=== PATIENT | male | born 1965 | race Caucasian/White ===

== ENCOUNTER → 2016-11-02 | Outpatient (CLI) | payer OTHER ==
--- NOTE | 2016-11-02 22:26 | CT ---
EXAMINATION TYPE: CT abdomen pelvis w con DATE OF EXAM: 11/02/2016 6:11 PM COMPARISON: NONE INDICATION: Patient complains of periumbilical pain and umbilical hernia. DLP: 1471.6 mGycm, Automated exposure control for dose reduction was used. CONTRAST: 100 mL of Omnipaque 300. Study performed with Oral Contrast TECHNIQUE: Axial images were obtained from above the diaphragm to the pubic rami in the axial plane a t 5 mm thick sections. Reconstructed images are reviewed on the computer in the coronal plane. FINDINGS: Limited CT sections are obtained the lung bases. The lung bases are clear. CT ABDOMEN: There may be a tiny mesenteric hernia with slight increased density in the periumbilical region with an opening of about 0.9 cm. No loops of bowel are involved. Small incarcerated mesenteric fat hernia could be considered at this level. Liver: Normal Spleen: Normal Pancreas: Normal Adrenal glands: The adrenal glands are normal. Gallbladder: Normal Kidneys: No masses are evident. No hydronephrosis is present. No cysts are present. Delayed images were obtained through the kidneys, which remain unremarkable. Aorta: Mild Vascular calcification is within the aorta. Inferior vena cava: Normal. CT PELVIS: Loops of bowel within the abdomen and pelvis are normal. There are loops of bowel which are incom pletely distended or lack oral contrast limiting their evaluation. Note is made of diverticular araiza es within the sigmoid colon. Appendix: Not identified Urinary bladder: Normal. Genitourinary structures: Prostate appears unremarkable. Osseous structures: No suspicious lytic or sclerotic lesions. Sacroiliac joint degenerative changes a re present. Some facet hypertrophy is present. Degenerative disc changes are within the lumbar spine. IMPRESSIONS: 1. Tiny periumbilical mesenteric fat containing hernia may be present. This may contain incarcerated fat. 2. Mild diverticulosis without acute diverticulitis sigmoid colon.
== END | disposition home or self-care (01) ==
LOC: RADCTMAIN 17:32
PROVIDERS: ATTEND Surgery
DX: K57.30 Diverticulosis of large intestine without perforation or abscess without bleeding (principal)
CPT/HCPCS: 74177; Q9967

== ENCOUNTER 2016-11-19 11:05 | Day surgery (SDC) | payer OTHER ==
[2016-11-13 16:57] VITALS: BMI 30.5
[~2016-11-19 11:05] MED LIST: LACTATED RINGERS 1,000 ML IV SCH; LIDOCAINE 1% 20 ML VIAL (10MG/ML) FOR IV START INTRADERMA PRN
[2016-11-19 12:31] VITALS: TEMP 98
[2016-11-19] MEDS ORDERED: LACTATED RINGERS 1,000 ML IV ONE (12:41)
[2016-11-19] MEDS ORDERED: PROPOFOL 10 MG/ML 20 ML VIAL IV ONE (13:28)
[2016-11-19] MEDS ORDERED: LIDOCAINE 1% INJ 10MG/ML (20 ML MDV) ONE (13:28)
[2016-11-19 14:12] VITALS: RESP 16
--- NOTE | 2016-11-19 14:12 | P.PCN ---
Date of Procedure: 11/19/16 Preoperative Diagnosis: Postoperative Diagnosis: Procedure(s) Performed: Procedures: 1. Esophagogastroduodenoscopy and biopsy. 2. Colonoscopy and biopsy. Preoperative diagnosis: Chronic reflux symptoms and screening for colon neoplasia. Postoperative diagnosis: 1. Small sliding hiatal hernia with no obvious esophagitis or complications reflux disease. 2. Mild antral gastritis. 3. Diminutive polyp around the splenic flexure biopsied but no large polyps, cancer or other pathology in the colon. Preparation: HalfLytely prep. Sedation: Was provided by anesthesia. Brief clinical history: The patient is a 51-year-old male who is referred for this evaluation for the above reasons. He had reflux for at least 10 years and has upper endoscopy back then and has been requiring omeprazole since that time with recurrence of his symptoms even if he omits one day of medications. He has had no prior colonoscopy. This evaluation was requested to assess for complete complicated reflux disease or other upper GI pathology and to screen for colon neoplasia. He has no abdominal complaints, bleeding or anemia. Procedure: With the patient on his left lateral decubitus position and after informed consent and adequate sedation, I passed the Olympus-GIF 160 video upper endoscope through the cricopharyngeus down the esophagus. GE junction was around 41 cm from the incisors and there there was a small, around 1 cm, sliding hiatal hernia. The esophagus did not show any erosions, ulcers, strictures or Laird's esophagus. The endoscope was then passed into the stomach which was insufflated with air and inspected in detail including the retroflex view in the cardia. There was some mottling and erythema in the antrum but no ulcers or erosions. Pyloric channel, duodenal bulb, post bulbar area and descending duodenum appeared within normal limits. Because of his symptoms, I obtained biopsies from the duodenum, antrum and esophagus then the endoscope was withdrawn and I proceeded to do colonoscopy. Perianal area did not show any fissures or fistulas. There were no masses felt on digital rectal examination. The Olympus CFQ 160L video colonoscope was then inserted in the rectum in the usual fashion and advanced to the cecum. The preparation on the right side and cecum was less than ideal but I did not see any obvious large polyps or tumors. The mucosa appeared healthy. There was a diminutive polyp around the splenic flexure which I biopsied but there were no other polyps or tumors. No obvious diverticular disease or other pathology. I retroflexed the endoscope in the rectum before the endoscope was withdrawn. The patient tolerated the procedure well. Plan: The patient was reassured. Will await biopsy results. I anticipate repeating his colonoscopy in 5 years. He will follow up with you as planned and I will be happy to see in the office if his symptoms persist or if there is a change. Implants: Indications for Procedure: Operative Findings: Description of Procedure:
[2016-11-19 14:20] VITALS: BP 137/88; PULSE 153
== END 2016-11-19 14:39 | disposition home or self-care (01) ==
LOC: ORWHC2ENDO 11:05
DX: Z12.11 Encounter for screening for malignant neoplasm of colon (principal); K21.9 Gastro-esophageal reflux disease without esophagitis; D12.5 Benign neoplasm of sigmoid colon; K44.9 Diaphragmatic hernia without obstruction or gangrene; K29.70 Gastritis, unspecified, without bleeding; I10 Essential (primary) hypertension; E78.5 Hyperlipidemia, unspecified; Z79.899 Other long term (current) drug therapy
CPT/HCPCS: 88305; 45380; 43239; J2001; J2704

== ENCOUNTER → 2017-06-24 | Outpatient (CLI) | payer BC ==
[2017-06-24 11:20] LABS: HCT 51.4 % (39.0-53.0); HGB 16.5 gm/dL (13.0-17.5); MCHC 32.2 g/dL (31.0-37.0); MCV 96.3 fL (80.0-100.0); Platelet Count 202 k/uL (150-450); RBC 5.34 m/uL (4.30-5.90); RDW 15.6 % (11.5-15.5); WBC 4.2 k/uL (3.8-10.6)
[2017-06-24 11:32] LABS: Appearance,Urine Clear (Clear); Bilirubin,Urine Negative (Negative); Blood,Urine Negative (Negative); Color,Urine Yellow; Glucose,Urine (UA) Negative (Negative); Ketones,Urine Trace (Negative); Leukocyte Esterase,Urine Negative (Negative); Nitrite,Urine Negative (Negative); PH, Urine 5.5 (5.0-8.0); Protein,Urine Trace (Negative); Specific Gravity,Urine 1.022 (1.001-1.035); Urobilinogen,Urine <2.0 mg/dL (<2.0)
[2017-06-24 11:34] LABS: INR 1.1 (<1.2); Prothrombin Time 10.4 sec (9.0-12.0)
[2017-06-24 11:36] LABS: ALT 60 U/L (21-72); AST 33 U/L (17-59); Albumin 4.2 g/dL (3.5-5.0); Alkaline Phosphatase 25 U/L (38-126); Anion Gap 11 mmol/L; Blood Urea Nitrogen 19 mg/dL (9-20); Carbon Dioxide 24 mmol/L (22-30); Chloride 107 mmol/L (98-107); Glucose 93 mg/dL (74-99); Potassium 4.8 mmol/L (3.5-5.1); Sodium 142 mmol/L (137-145); Total Bilirubin 0.7 mg/dL (0.2-1.3); Total Protein 6.8 g/dL (6.3-8.2)
[2017-06-24 11:49] LABS: Partial Thromboplastin Time 21.7 sec (22.0-30.0)
== END ==
LOC: LABPAT 10:36
PROVIDERS: ATTEND Orthopaedic Surgery
DX: Z01.818 Encounter for other preprocedural examination (principal); Z01.812 Encounter for preprocedural laboratory examination
CPT/HCPCS: 36415; 80053; 81003; 85027; 85610; 85730; 87070; 93005

== ENCOUNTER 2017-07-05 06:27 | Inpatient (IN) | payer BC, OTHER ==
[2017-06-24 16:39] VITALS: BMI 29.1
[~2017-07-05 06:27] MED LIST changes: +ACETAMINOPHEN TAB 500 MG TAB PO ONE; +HYDROmorphone 0.5 MG/0.5 ML SYRINGE IVP PRN; -LIDOCAINE 1% 20 ML VIAL (10MG/ML) FOR IV START INTRADERMA PRN; +MELOXICAM 7.5 MG TAB PO ONE; +ONDANSETRON 4 MG/2 ML VIAL IVP ONE; +TRANEXAMIC ACID 1,000 MG in SODIUM CHLORIDE 0.9% 50 ML IVPB ONE; +ceFAZolin IN SWFI 2 GM/20 ML SYRINGE IVP ONE
[2017-07-05 06:59] VITALS: RESP 16
[2017-07-05] MEDS ORDERED: LIDOCAINE 1% 20 ML VIAL (10MG/ML) FOR IV START INTRADERMA ONE (07:07)
[2017-07-05] MEDS ORDERED: DEXAMETHASONE SOD PHOS (MDV) 100 MG/10 ML VIAL IVP ONE (07:13)
[2017-07-05] MEDS ORDERED: ROPIVACAINE 246.25 MG, EPINEPHrine 0.5 MG, KETOROLAC 30 MG, cloNIDine HCL/PF 80 MCG, WA... MISCELLANE ONE ×5 (07:52)
[2017-07-05] MEDS ORDERED: PROPOFOL 10 MG/ML 20 ML VIAL IV ONE (08:11)
[2017-07-05] MEDS ORDERED: SODIUM CHLORIDE 0.9% 100 ML BAG ONE (08:11)
[2017-07-05] MEDS ORDERED: TRANEXAMIC ACID 1,000 MG/10 ML VIAL ONE (08:11)
[2017-07-05] MEDS ORDERED: fentaNYL (PF) 50 MCG/ML 2 ML AMP ONE (08:11)
[2017-07-05] MEDS ORDERED: MIDAZOLAM 2 MG/2 ML VIAL ONE (08:11)
--- NOTE | 2017-07-05 10:38 | P.OP ---
Date of Procedure: 07/05/17 Procedure(s) Performed: PREOPERATIVE DIAGNOSIS: Right knee severe osteoarthritis with genu varum POSTOPERATIVE DIAGNOSIS: Right knee severe osteoarthritis with genu varum OPERATION: Right knee cemented total replacement arthroplasty. ANESTHESIA: Spinal ESTIMATED BLOOD LOSS: 100 ml. GAMING TABLE OPERATOR: Jojo Bridges PA-C (assistance with: patient positioning, retraction, exposure, hemostasis, leg positioning, implantation, irrigation, closure, dressing) COMPLICATIONS: None apparent. COMPONENTS IMPLANTED: Persona system from [employer] INDICATIONS: Chapincito is a 52-year-old male with a history of right knee osteoarthritis. The patient's knee is end-stage, and conservative management has failed, including arthroscopic debridement. The operation of knee replacement has been discussed at length in the office, as well as potential risks and complications. These are inclusive of, but not limited to: bleeding, infection, scarring, discomfort, blood vessel and nerve damage, need for further surgery, failure to relieve symptoms, persistence, recurrence, or worsening of problems, loosening, dislocation, wear, blood clot, pulmonary embolism, , gait dysfunction, stiffness, and other risks as discussed in the office. The patient elects to proceed and the consent form has been signed. PROCEDURE: The patient was taken to the operating room and positioned on the operating room table in the supine position. Anesthesia was initiated. Care was taken to make sure that all pressure points were adequately padded. The operative lower extremity was prepped and draped in the usual aseptic fashion using ChloraPrep. Ioban drape was used for the case and the patient received intravenous antibiotics within one hour of the incision. A pneumotourniquet and leg marc were used for the case. The limb was exsanguinated with an Esmarch bandage and the tourniquet was inflated to 350 mmHg. Time-out was called confirming the patient's identity, side, procedure and administration of antibiotics and tranexamic acid. The incision was then created midline directly over the knee, carried down through skin and into the subcutaneous tissues and down to fascia. Full thickness subcutaneous medial flap was developed. Medial parapatellar arthrotomy was performed and the interior of the knee was inspected. There was end-stage osteoarthritis of the knee with a mild to moderate genu varum type deformity. The fat pad was excised and proximal medial release on the tibia was completed using meticulous dissection and a curved osteotome. The anterior cruciate ligament was taken down. Note was made of significant attrition of the anterior and significant degenerative appearance of the cruciate ligaments. The exposure was excellent. The knee was flexed 90 degrees and the patella was everted. A spot was chosen on the femur approximately 1 cm anterior to the posterior cruciate ligament insertion and an intramedullary hole was created within the femur. The intramedullary guide was then set to 5 degrees of valgus. The distal cutting block was attached and pinned into position. An appropriate amount of distal femoral resection was set. The oscillating saw was then used to make the distal femoral cut. This cut was confirmed to be flat with the flat end of an osteotome. The retractors were placed around the tibia and the tibial surface was addressed. The angle and depth of resection was adjusted using an extramedullary cutting guide. The guide had a built-in 3 degree posterior slope cut. Once the cutting guide was adjusted appropriately and in line with the axis of the tibia and confirmed to be in good position in relation to the second metatarsal and transmalleolar axis, the tibial cut was then created with protection of the posterior neurovascular structures and the collateral ligaments. The tibial cut surface was removed and sized. Femoral sizing was then accomplished using anterior referencing. Care was taken to analyze the posterior condyles for signs of deficiency or severe wear, and adjustments to the guide were made, as appropriate. 3 degree external rotation pins were placed. The cutting jig for the femur was applied to these pins. The planned cuts were further analyzed prior to performing them with the oscillating saw. No femoral notching was produced. Bone fragments were removed and the cut surfaces were finished, as necessary, with a reciprocating saw. Spacer block technique was then used to confirm that the flexion and extension gaps were equal. Soft tissue releases and adjustment of the tibial and/or femoral cuts were made, as necessary, until the gaps were equal. This included release of the posterior cruciate ligament, which was excessively tight in this patient. The femur was then further finished for a posterior cruciate ligament substituting component. Patellar resurfacing was performed using a reamer. The size of the required patellar component was estimated and the patellar surface was then reamed down to a residual thickness which would recreate the soboba thickness with the component. The placement of the patellar component was influenced by the degree of patellar subluxation, if any, noted on the preoperative x-rays. Prior to placing trial components, anesthetic solution consisting of ropivicaine with epinephrine, ketorolac, and clonidine was injected carefully and methodically in a grid pattern using aspiration technique into the soft tissue around the knee circumferentially, starting with the deeper tissues first and progressing to fascia, and then finally the skin/subcutaneous tissue. Particular care was taken when injecting the posterior capsule. The trial components were inserted. The tibial tray was allowed to self center and the patella was noted to track very well. The position of the tibial component was marked and the tibia was then finished for a stemmed tibial component. Cement was mixed on the back table and applied to the final components. Trial components were removed and the cut surfaces of the bone were pulse lavaged thoroughly and dried. Cement was then applied to the tibial surface and pressurized into the surface using finger pressurization technique. The tibial component was then applied and excess cement was removed after it was impacted securely and noted to be flush with the cut surface. In similar fashion, the cement was applied to the cut femoral surface, pressurized in using finger pressurization and the component was impacted into place. Excess cement was removed. The polyethylene spacer was then implanted and locked into position. The patellar component was then applied in similar technique and a patellar clamp was used to hold the patella in place as the cement hardened. Once the cement had fully hardened, the knee was reinspected. Any other cement extrusion was removed and final kinematic testing showed range of motion from 0 to 130 degrees with excellent stability, both medially and laterally and appropriate alignment of the leg. Patellar tracking was excellent. The knee was then thoroughly pulse lavaged with normal saline. The tourniquet was deflated and hemostasis was obtained with electrocautery and IV tranexamic acid, 1 g given at the start of the operation and 1 g at the start of closure. Closure was with #2 Ethibond in the fascia/capsule and supplemented with #2 Quill, 2-0 Vicryl suture was used for the subcutaneous tissues and 3-0 Quill for the skin. Dermabond/Steri-Strips were then applied. A lightly compressive dressing was applied using Webril and an Alex wrap. The patient was then transferred to carrier clinic and taken to the recovery room in stable condition. Sponge and needle counts were correct.
[2017-07-05] MEDS ORDERED: MAGNESIUM HYDROXIDE 2,400 MG/10 ML CUP PO PRN (10:39)
[2017-07-05] MEDS ORDERED: NALOXONE 0.4 MG/ML 1 ML VIAL IV PRN (10:39)
[2017-07-05] MEDS ORDERED: HYDROmorphone 0.5 MG/0.5 ML SYRINGE IVP PRN ×2 (10:39)
[2017-07-05] MEDS ORDERED: HYDROcodone/APAP 7.5-325MG 1 EACH TAB PO PRN ×2 (10:39)
[2017-07-05] MEDS ORDERED: ACETAMINOPHEN TAB 325 MG TAB PO PRN (10:39)
[2017-07-05] MEDS ORDERED: hydrOXYzine PAMOATE 25 MG CAP PO PRN (10:39)
[2017-07-05] MEDS ORDERED: NA PHOS,M-B/NA PHOS,DI-BA 133 ML ENEMA RECTAL PRN (10:39)
[2017-07-05] MEDS ORDERED: BISACODYL 10 MG SUPP RECTAL PRN (10:39)
[2017-07-05 10:51] VITALS: TEMP 97
--- NOTE | 2017-07-05 11:07 | XR ---
EXAMINATION TYPE: XR knee limited RT DATE OF EXAM: 07/05/2017 CLINICAL HISTORY: pain TECHNIQUE: Three views of the right knee are obtained. COMPARISON: None. FINDINGS: There is no acute fracture/dislocation. The tri-compartment joint spaces appear within no rmal limits. The overlying soft tissue appears unremarkable. IMPRESSION: There is no acute fracture or dislocation.ICD 10 NO FRACTURE, INITIAL EVALUATION
[2017-07-05] MEDS: LACTATED RINGERS 1,000 ML IV SCH ×2 (11:29→15:24)
[2017-07-05 15:28] VITALS: BP 132/77; PULSE 77
[2017-07-05] MEDS ORDERED: ceFAZolin IN SWFI 2 GM/20 ML SYRINGE IVP SCH (16:00)
[2017-07-05] MEDS ORDERED: SENNOSIDES-DOCUSATE SODIUM 1 EACH TAB PO SCH (21:00)
[2017-07-05] MEDS ORDERED: ASPIRIN 325 MG TAB PO SCH (21:00)
--- NOTE | 2017-07-05 21:56 | CONS ---
CONSULTATION DATE OF CONSULTATION: July 05, 2017 REASON FOR CONSULTATION: Medical management requested by Dr. Stern. CONSULTATION: This is a pleasant 52-year-old patient of Dr. Stern. The patient has undergone a right total knee arthroplasty. The patient's pain is well controlled. The patient has a dressing over the same. The patient has been out of bed. No nausea or vomiting. No chest pain. Did tolerate a meal. Chronic stable medical conditions include hypertension, hyperlipidemia, osteoarthritis in other joints including the hands. Denies any cardiac history. REVIEW OF SYSTEMS: CONSTITUTIONAL: None. HEENT none. Respiratory none. Cardiovascular none. Gastrointestinal none. Genitourinary: None. Musculoskeletal as above. Dermatological, hematologic, lymphatics none. Psychiatry none. Neurological none. Musculoskeletal as above. PAST MEDICAL HISTORY: Hypertension, hyperlipidemia, osteoarthritis. PAST SURGICAL HISTORY: Hernia repair, orthopedic surgery, right knee scope, bilateral carpal tunnel surgery, hernia x2. SOCIAL HISTORY: Occasionally smokes a cigar. No alcohol. . Employed. FAMILY HISTORY: COPD, aneurysm. HOME MEDICATIONS: 1. Omeprazole 20 mg p.o. daily. 2. Losartan 100 mg q.h.s. 3. 140 mg subcu every 14 days. 4. Etodolac 5 mg p.o. b.i.d. 5. 1.5 mg injection every 14 days. 6. Senokot S one tab p.o. b.i.d. 7. Palmer 7.5 one tab q.4h to 6 p.r.n. 8. Aspirin 325 p.o. b.i.d. for the prophylaxis. ALLERGIES: None. PHYSICAL EXAMINATION: On examination, afebrile, pulse 67, respiratory rate 16, blood pressure 110/78, pulse ox 96% on room air. General appearance: Average built, sitting up, comfortable. Eyes pupils equal. Conjunctivae normal. HEENT: Oral cavity normal. Neck JVD not raised. Mass not palpable. Respiratory effort normal. Lungs are clear. Cardiovascular: 1st and 2nd sounds normal. No edema. ABDOMEN: Soft, nontender. Liver and spleen not palpable. Lymphatics: No lymph nodes palpable in the neck or axilla. Psychiatry: Alert and oriented x3. Mood and affect normal. Neurological pupils equal. Cranial nerves grossly intact. Power and sensation grossly intact. Extremities: Right knee in a dressing. INVESTIGATIONS: Blood work from June 24, 2017 shows a white count of 4.2, hemoglobin 16.5, potassium 4.8. ASSESSMENT: 1. Right total knee arthroplasty for osteoarthritis. 2. Primary osteoarthritis especially of the hands in the distal interphalangeal joints on physical exam. 3. Essential hypertension. 4. Hyperlipidemia. PLAN: Home medications will continue. Patient is on aspirin for DVT prophylaxis. Care was discussed with the patient and at the bedside. The patient should follow up with Dr. Garcia as an outpatient. Thank you Dr. Stern. Copy to Dr. Garcia. MMODL / IJN: [id number] /
[2017-07-06] MEDS ORDERED: MELOXICAM 7.5 MG TAB PO SCH (09:00)
[2017-07-06] MEDS ORDERED: MULTIVITAMINS, THERA 1 EACH TAB PO SCH (12:00)
== END 2017-07-05 18:43 | disposition home health service (06) | DRG 470 ==
LOC: 2ORMAIN 06:27 → 3SUR 10:44
PROVIDERS: ADMIT Orthopaedic Surgery; ATTEND Orthopaedic Surgery
PROC: 0SRC0J9 Replacement of Right Knee Joint with Synthetic Substitute, Cemented, Open Approach (ICD-10-PCS; principal; 2017-07-05 08:00)
DX: M17.11 Unilateral primary osteoarthritis, right knee (principal); E78.5 Hyperlipidemia, unspecified; M21.161 Varus deformity, not elsewhere classified, right knee; Z79.890 Hormone replacement therapy; Z79.899 Other long term (current) drug therapy; F17.290 Nicotine dependence, other tobacco product, uncomplicated; I10 Essential (primary) hypertension; Z82.5 Family history of asthma and other chronic lower respiratory diseases; Z79.82 Long term (current) use of aspirin; Z79.891 Long term (current) use of opiate analgesic
CPT/HCPCS: 88300

== ENCOUNTER → 2019-10-25 | Outpatient (CLI) | payer BC ==
--- NOTE | 2019-10-25 09:10 | US ---
EXAMINATION TYPE: US extremity nonvasc mass RT DATE OF EXAM: 10/25/2019 COMPARISON: NONE CLINICAL HISTORY: M25.851. Lump right groin/hip for 2 years scanned within area of lump, right groin/hip, isoechoic area noted = 7.0 x 2.0 x 4.2cm, possible lipo ma Technologist marked an oval hyperechoic lesion with local mass effect superficial to the thigh muscle s, deep to the dermal layer. No suspicious fluid collection. No significant internal vascularity. IMPRESSION: As above. Well-defined solid soft tissue lesion favored nonaggressive in etiology. Furth er investigation with contrast-enhanced CT or MRI advised to better evaluate and characterize.
== END | disposition home or self-care (01) ==
LOC: RADUSWWP 08:15
PROVIDERS: ATTEND Family Medicine
DX: M79.89 Other specified soft tissue disorders (principal)

== ENCOUNTER → 2019-11-15 | Outpatient (CLI) | payer BC ==
--- NOTE | 2019-11-15 16:41 | CT ---
EXAMINATION TYPE: CT hip RT wo con DATE OF EXAM: 11/15/2019 COMPARISON: None HISTORY: Swelling with occasional pain Anterior Hip sub ASIS CT DLP: 536 mGycm Automated exposure control for dose reduction was used. Unenhanced CT of the right hip was performed with bone and soft tissue window settings submitted. Axial coronal and sagittal images are reviewed. FINDINGS: I do not see evidence for displaced or impacted right hip fracture. There is mild degenerative narrow ing identified of the right hip joint space. There is no evidence for soft tissue mass. No bony destr uctive process seen. Severe degenerative change with vacuum disc lower lumbar spine. Vacuum changes n oted of the SI joints bilaterally. IMPRESSION: NO EVIDENCE FOR ACUTE FRACTURE OR DISLOCATION. DEGENERATIVE CHANGES DISCUSSED.
== END | disposition home or self-care (01) ==
LOC: RADCTMAIN 16:00
PROVIDERS: ATTEND Family Medicine
DX: M16.11 Unilateral primary osteoarthritis, right hip (principal); M25.851 Other specified joint disorders, right hip

== ENCOUNTER → 2021-07-25 | Outpatient (CLI) | payer BC ==
--- NOTE | 2021-07-25 10:58 | CT ---
EXAMINATION TYPE: High-resolution CT chest DATE OF EXAM: 07/25/2021 COMPARISON: 06/29/2021 HISTORY: 56-year-old male J84.10, ILD, diagnosed with COVID on 06-20-2021 TECHNIQUE: Thin cut axial scanning of the chest utilizing 1 mm slice thickness and 1 cm gap without I V contrast per HRCT protocol. Both prone and supine imaging is performed. CT DLP: 223 mGycm Automated exposure control for dose reduction was used. FINDINGS: Heart borderline enlarged without pericardial effusion. Three-vessel coronary artery calcifications a re present. Portable and ectasia ascending aorta 3.5 cm. In metatarsal vessel branching anatomy. A few scattered prominent but nonenlarged mediastinal lymph nodes. Large caliber to the main right and left pulmonary arteries measuring up to 3.0 cm, increased from 2. 7 cm, previously. There is some residual patchy areas of prominent peribronchovascular peripheral groundglass opacity. However, many of the previous opacities have progressed now 2 thickened reticular opacity with some a ssociated bronchiolectasis throughout the lungs, greatest in the lower lungs. No anh honeycombing. No pleural effusion. Visualized upper abdomen shows some mild diverticular change in the colon. 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 Mild to moderate multilevel degenerative disc d isease. IMPRESSION: 1. SOME MILD GROUNDGLASS PNEUMONITIS REMAINS. THIS COULD REPRESENT RESIDUAL VERSUS RECURRENT PNEUMONI TIS. 2. HOWEVER, MOST OF THE PREVIOUS COVID PNEUMONIA HAS PROGRESSED TO THICKENED RETICULATIONS WITH ASSOC IATED AREAS OF MILD BRONCHIOLECTASIS. EXTENSIVE POSTINFECTIOUS SCARRING IS SUGGESTED. 3. CORRELATE FOR CONCURRENT PULMONARY ARTERIAL HYPERTENSION. PULMONARY ARTERY CALIBER NOW 3.0 CM, INC REASED FROM 2.7 CM PREVIOUSLY.
== END | disposition home or self-care (01) ==
LOC: RADCTMAIN 09:47
PROVIDERS: ATTEND Internal Medicine Critical Care Medicine
DX: J18.9 Pneumonia, unspecified organism (principal); J47.9 Bronchiectasis, uncomplicated; R91.8 Other nonspecific abnormal finding of lung field
CPT/HCPCS: 71250

== ENCOUNTER → 2022-11-02 | Outpatient (CLI) | payer OTHER ==
--- NOTE | 2022-11-02 17:47 | CT ---
EXAMINATION TYPE: CT chest w con DATE OF EXAM: 11/02/2022 COMPARISON: Chest CT June 29 2021 HISTORY: Shortness of breath, COVID x [address] DLP: 815 mGycm. Automated Exposure Control for Dose Reduction was Utilized. TECHNIQUE: CT scan of the thorax is performed following with IV Contrast, patient injected with 100 cc mL of Isovue 370. FINDINGS: LUNGS: Areas of mosaic attenuation are redemonstrated with areas of mild to moderate linear scarring and/or atelectasis in both lower lungs. There is no pleural effusion or pneumothorax seen. The tra cheobronchial tree is patent. MEDIASTINUM: There are no greater than 1 cm hilar or mediastinal lymph nodes. No cardiomegaly or pe ricardial effusion is seen. Coronary artery calcification is present. OTHER: Small degree of bilateral subareolar gynecomastia is redemonstrated. Liver is diffusely low de nse consistent with diffuse fatty infiltration. Marked disc space narrowing near the thoracolumbar ju nction is redemonstrated. IMPRESSION: Areas of mosaic attenuation significantly improved from prior study could reflect infiltr ate and/or edema. Mild to moderate background parenchymal scarring is redemonstrated worst in the low er lungs.
== END | disposition home or self-care (01) ==
LOC: RADCTMAIN 16:28
PROVIDERS: ATTEND Internal Medicine Critical Care Medicine
DX: J98.4 Other disorders of lung (principal); R06.02 Shortness of breath; Z86.16 Personal history of COVID-19
CPT/HCPCS: 71260; Q9967

== ENCOUNTER 2022-12-04 05:49 | Day surgery (SDC) | payer OTHER ==
[2022-12-04] MEDS ORDERED: HEPARIN SODIUM,PORCINE 2,500 UNIT in SODIUM CHLORIDE 0.9% 250 ML IRRIGATION PRN (06:02)
[2022-12-04] MEDS ORDERED: ALPRAZolam 0.25 MG TAB PO PRN (06:02)
[2022-12-04] MEDS ORDERED: SODIUM CHLORIDE 0.9% 1,000 ML in EMPTY BAG 1 BAG IV SCH ×2 (06:02→08:30)
[2022-12-04] MEDS ORDERED: HEPARIN SODIUM,PORCINE 10,000 UNIT in SODIUM CHLORIDE 0.9% 1,000 ML IRRIGATION PRN (06:02)
[2022-12-04] MEDS ORDERED: ATORVASTATIN 80 MG TAB PO STA (06:02)
[2022-12-04] MEDS ORDERED: NITROGLYCERIN SL TABS 0.4 MG TAB SUBLINGUAL PRN ×2 (06:02→08:18)
[2022-12-04] MEDS ORDERED: ALPRAZolam 0.5 MG TAB PO PRN (06:02)
[2022-12-04] MEDS ORDERED: ASPIRIN 325 MG TAB PO STA (06:02)
[2022-12-04] MEDS ORDERED: SODIUM CHLORIDE 0.9% 1,000 ML IV ONE (06:14)
[2022-12-04 06:37] VITALS: RESP 16; TEMP 98.2
[2022-12-04 06:39] LABS: Basophils % (A) 0 %; Eosinophils # (A) 0.2 k/uL (0-0.7); Eosinophils % (A) 3 %; HCT 39.5 % (39.0-53.0); HGB 13.6 gm/dL (13.0-17.5); Lymphocytes # (A) 1.4 k/uL (1.0-4.8); Lymphocytes % (A) 31 %; MCH 31.4 pg (25.0-35.0); MCHC 34.4 g/dL (31.0-37.0); MCV 91.1 fL (80.0-100.0); Mean Platelet Volume 7.8; Monocytes # (A) 0.4 k/uL (0-1.0); Monocytes % (A) 8 %; Neutrophils # (A) 2.5 k/uL (1.3-7.7); Neutrophils % (A) 55 %; Platelet Count 211 k/uL (150-450); RBC 4.34 m/uL (4.30-5.90); RDW 13.9 % (11.5-15.5); WBC 4.5 k/uL (3.8-10.6)
[2022-12-04 06:59] LABS: African American GFR (CKD) >90 (>60 ml/min/1.73 sqM); Anion Gap 6 mmol/L; Blood Urea Nitrogen 18 mg/dL (9-20); Calcium 8.6 mg/dL (8.4-10.2); Carbon Dioxide 24 mmol/L (22-30); Chloride 108 mmol/L (98-107); Glucose 114 mg/dL (74-99); Non-African American GFR(CKD) >90 (>60 ml/min/1.73 sqM); Potassium 3.8 mmol/L (3.5-5.1); Sodium 138 mmol/L (137-145)
[2022-12-04] MEDS ORDERED: VERAPAMIL 2.5 MG/ML 2 ML AMP ONE (07:21)
[2022-12-04] MEDS ORDERED: HEPARIN SODIUM 1,000 UN/ML (10ML VL) ONE (07:29)
[2022-12-04] MEDS ORDERED: MIDAZOLAM 2 MG/2 ML VIAL IV ONE (07:34)
[2022-12-04] MEDS ORDERED: LIDOCAINE 1% INJ 10MG/ML (5 ML VIAL-PF) SQ ONE (07:43)
[2022-12-04] MEDS ORDERED: VERAPAMIL SYRINGE (5 MG/10 ML) INTRAARTER ONE (07:44)
[2022-12-04] MEDS: HEPARIN SODIUM 1,000 UN/ML (10ML VL) IV ONE ×2 (07:47→08:02)
[2022-12-04] MEDS ORDERED: PRASUGREL 10 MG TAB ONE ×2 (08:00→08:05)
[2022-12-04] MEDS ORDERED: PRASUGREL 10 MG TAB PO ONE (08:06)
[2022-12-04] MEDS ORDERED: IOPAMIDOL-370 100ML BTL INJ ONE (08:16)
[2022-12-04] MEDS ORDERED: PANTOPRAZOLE 40 MG TABLET PO PRN (08:17)
[2022-12-04] MEDS ORDERED: guaiFENesin 600 MG TABLET.ER PO PRN (08:17)
[2022-12-04] MEDS ORDERED: RX INFO: IV CONTRAST WAS GIVEN 1 EACH MISC MISCELLANE PRN (08:18)
[2022-12-04] MEDS ORDERED: MAG HYDROX/AL HYDROX/SIMETH 30 ML CUP PO PRN (08:18)
[2022-12-04] MEDS ORDERED: ZOLPIDEM 5 MG TAB PO PRN (08:18)
[2022-12-04] MEDS ORDERED: ATROPINE SULFATE 0.1 MG/ML 10ML SYRINGE IV PRN (08:18)
--- NOTE | 2022-12-04 08:24 | P.PCN ---
Date of Procedure: 12/04/22 Operative Findings: CARDIAC CATHETERIZATION AND PERCUTANEOUS CORONARY INTERVENTION PERFORMING PHYSICIAN: Ney Bernal MD, [facility] PROCEDURE PERFORMED: 1. Selective right and left coronary angiogram 2. Left heart catheterization 3. Successful stenting of mid RCA using 4.5 x 15 mm Xience SYDNEE with an excellent angiographic results 4. Adjunctive use of intravascular ultrasound INDICATION: Shortness of breath concerning for unstable angina and 67-year-old gentleman who is known to have CAD COMPLICATION: None APPROACH: Right radial artery LEVEL OF SEDATION: Moderate with the sedation time off 32 minutes PROCEDURE DESCRIPTION: After obtaining an informed consent the patient was brought to the cardiac phlebotomist lab assistant. The right radial artery was cannulated using micropuncture technique under ultrasound guidance, the micropuncture wire passed easily then I placed a 6- [place] [employer] sheath. I gave the patient 2 mg of verapamil intra-arterial and a total of 6000 use of heparin intravenous. Continuous ACT monitoring was performed. Selective right and left coronary angiogram was performed using JR4 and JL 3.5 catheters and then left heart catheterization was performed using 6-[place] pigtail catheter. After that I did intervene on the right coronary artery. Please note that the right radial access was performed using ultrasound. SELECTIVE CORONARY ANGIOGRAM: The right coronary artery: Large-caliber vessel and a dominant vessel. The mid RCA has ulcerated lesion appeared to be in the range of 80%. The RCA is a large caliber vessel and a dominant vessel. Left main: Short was mild disease only. Bifurcates into an LCx and LAD The left circumflex: Medium caliber vessel nondominant vessel. The LCx gives rises into an OM which is about 2 mm in diameter and has disease appears to be in the range of 80% The left anterior descending artery: Proximal LAD appears to have mild disease only. The mid LAD just proximal to the bifurcation of the diagonal branch has a lesion appeared to be in the range of 60-70%. The LAD distally appears to have mild disease only HEMODYNAMICS: The LVEDP was 10 mmHg was no significant gradient across aortic valve PCI OF THE RCA: Anticoagulation was initiated using heparin with continuous ACT monitoring. After that I did engage the RCA using JR4 guiding catheter. I did wire the RCA using a run-through wire. Intravascular ultrasound was performed and showed a diameter of the RCA around 4.5 mm. I did predilatation using 3.5 mm balloon before I deployed 4.5 x 15 mm stent and subsequently I postdilated the stent using 5 mm noncompliant balloon. Final angiogram and intravascular ultrasound was performed and showed an excellent angiographic results. The procedure was completed was no complication CONCLUSION: Severe disease involving the mid RCA was ulcerated plaque. I did perform successful stenting of the RCA Severe disease involving a medium caliber OM branch of the left circumflex Intermediate to severe disease involving the LAD POSTPROCEDURE MANAGEMENT: 1. Dual antiplatelet therapy using aspirin and Effient for 6 month 2. Aggressive cholesterol control 3. Follow-up with the patient
[2022-12-04] MEDS ORDERED: LOSARTAN-HCTZ 50-12.5 MG 1 EACH TAB PO SCH ×2 (09:00→14:00)
[2022-12-04] MEDS ORDERED: NON FORMULARY DRUG (Fish Oil/Dha/Epa [Fish Oil 1,200 Mg Fish Oil] 1 EACH Capsule) PO SCH (09:00)
[2022-12-04] MEDS ORDERED: ASCORBIC ACID 500 MG TAB PO SCH (09:00)
[2022-12-04] MEDS ORDERED: NON FORMULARY DRUG (Cinnamon Bark [Cinnamon] 500 MG Capsule) PO SCH (09:00)
[2022-12-04] MEDS ORDERED: NON FORMULARY DRUG (Tadalafil [Cialis] 5 MG Tablet) PO SCH (09:00)
[2022-12-04] MEDS ORDERED: CHOLECALCIFEROL 25 MCG (1000 IU) TABLET PO SCH (14:00)
[2022-12-04] MEDS ORDERED: LACTOBACILLUS ACIDOPHILUS/PECT 1 EACH CAPSULE PO SCH (14:00)
[2022-12-04 14:59] VITALS: BP 138/72; PULSE 60
[2022-12-05] MEDS ORDERED: ETODOLAC 400 MG TAB PO SCH (09:00)
[2022-12-05] MEDS ORDERED: ASPIRIN 81 MG PO SCH (09:00)
[2022-12-05] MEDS ORDERED: PRASUGREL 10 MG TAB PO SCH (09:00)
[2022-12-13] MEDS ORDERED: EVOLOCUMAB 140 MG/ML SQ SCH (09:00)
== END 2022-12-04 14:45 | disposition home or self-care (01) ==
LOC: CATHCVL 05:49 → 6NMEDSUR 08:20 → CATHCVL 14:45
PROVIDERS: ATTEND Internal Medicine Interventional Cardiology
DX: I25.10 Atherosclerotic heart disease of native coronary artery without angina pectoris (principal); Z79.02 Long term (current) use of antithrombotics/antiplatelets; Z79.82 Long term (current) use of aspirin
CPT/HCPCS: 92978; 93458; 80048; 85025; C9600; C1887; C1769 ×2; C1894; C1725 ×2; C1753; C1874; J2250; J2001; J1644; Q9967

== ENCOUNTER 2023-01-04 06:54 | Day surgery (SDC) | payer OTHER ==
[~2023-01-04 06:54] MED LIST changes: -ACETAMINOPHEN TAB 500 MG TAB PO ONE; +ALPRAZolam 0.25 MG TAB PO PRN; +ALPRAZolam 0.5 MG TAB PO PRN; +ASPIRIN 325 MG TAB PO PRN; -HYDROmorphone 0.5 MG/0.5 ML SYRINGE IVP PRN; -LACTATED RINGERS 1,000 ML IV SCH; -MELOXICAM 7.5 MG TAB PO ONE; -ONDANSETRON 4 MG/2 ML VIAL IVP ONE; -TRANEXAMIC ACID 1,000 MG in SODIUM CHLORIDE 0.9% 50 ML IVPB ONE; -ceFAZolin IN SWFI 2 GM/20 ML SYRINGE IVP ONE
[2023-01-04] MEDS ORDERED: PRASUGREL 10 MG TAB PO STA (07:08)
[2023-01-04] MEDS ORDERED: SODIUM CHLORIDE 0.9% 1,000 ML IV ONE (07:18)
[2023-01-04 07:24] LABS: Basophils % (A) 0 %; Eosinophils # (A) 0.2 k/uL (0-0.7); Eosinophils % (A) 4 %; HCT 40.5 % (39.0-53.0); HGB 14.3 gm/dL (13.0-17.5); Lymphocytes # (A) 1.8 k/uL (1.0-4.8); Lymphocytes % (A) 31 %; MCH 32.5 pg (25.0-35.0); MCHC 35.2 g/dL (31.0-37.0); MCV 92.5 fL (80.0-100.0); Mean Platelet Volume 7.8; Monocytes # (A) 0.5 k/uL (0-1.0); Monocytes % (A) 9 %; Neutrophils # (A) 3.2 k/uL (1.3-7.7); Neutrophils % (A) 55 %; Platelet Count 198 k/uL (150-450); RBC 4.38 m/uL (4.30-5.90); RDW 13.6 % (11.5-15.5); WBC 5.9 k/uL (3.8-10.6)
[2023-01-04 07:45] LABS: African American GFR (CKD) >90 (>60 ml/min/1.73 sqM); Anion Gap 5 mmol/L; Blood Urea Nitrogen 18 mg/dL (9-20); Calcium 8.7 mg/dL (8.4-10.2); Carbon Dioxide 29 mmol/L (22-30); Chloride 104 mmol/L (98-107); Glucose 121 mg/dL (74-99); Non-African American GFR(CKD) >90 (>60 ml/min/1.73 sqM); Potassium 4.1 mmol/L (3.5-5.1); Sodium 138 mmol/L (137-145)
[2023-01-04] MEDS ORDERED: VERAPAMIL 2.5 MG/ML 2 ML AMP ONE (09:25)
[2023-01-04] MEDS ORDERED: MIDAZOLAM 2 MG/2 ML VIAL IVP ONE (09:44)
[2023-01-04] MEDS ORDERED: LIDOCAINE 1% INJ 10MG/ML (5 ML VIAL-PF) SQ ONE (09:48)
[2023-01-04] MEDS ORDERED: VERAPAMIL SYRINGE (5 MG/10 ML) INTRAARTER ONE (09:49)
[2023-01-04] MEDS ORDERED: HEPARIN SODIUM 1,000 UN/ML (10ML VL) ONE (09:50)
[2023-01-04] MEDS ORDERED: HEPARIN SODIUM 1,000 UN/ML (10ML VL) IV ONE (09:53)
[2023-01-04] MEDS: MIDAZOLAM 2 MG/2 ML VIAL IVP ONE ×2 (10:12→10:19)
[2023-01-04] MEDS ORDERED: IOPAMIDOL-370 100ML BTL INJ ONE ×2 (10:12→10:45)
[2023-01-04] MEDS ORDERED: NITROGLYCERIN 1000MCG/10ML SYRINGE INTRACORON ONE (10:19)
[2023-01-04] MEDS ORDERED: guaiFENesin 600 MG TABLET.ER PO PRN (10:47)
[2023-01-04] MEDS ORDERED: PANTOPRAZOLE 40 MG TABLET PO PRN (10:47)
[2023-01-04] MEDS ORDERED: ZOLPIDEM 5 MG TAB PO PRN (10:48)
[2023-01-04] MEDS ORDERED: NITROGLYCERIN SL TABS 0.4 MG TAB SUBLINGUAL PRN (10:48)
[2023-01-04] MEDS ORDERED: MAG HYDROX/AL HYDROX/SIMETH 30 ML CUP PO PRN (10:48)
[2023-01-04] MEDS ORDERED: RX INFO: IV CONTRAST WAS GIVEN 1 EACH MISC MISCELLANE PRN (10:48)
[2023-01-04] MEDS ORDERED: ATROPINE SULFATE 0.1 MG/ML 10ML SYRINGE IV PRN (10:48)
--- NOTE | 2023-01-04 10:59 | P.PCN ---
Date of Procedure: 01/04/23 Operative Findings: CARDIAC CATHETERIZATION AND PERCUTANEOUS CORONARY INTERVENTION PERFORMING PHYSICIAN: Ney Bernal MD, [facility] PROCEDURE PERFORMED: 1. Selective right and left coronary angiogram 2. Left heart catheterization 3. Successful stenting of OM1 using 2.25 x 15 mm Xience SYDNEE with an excellent angiographic results 4. Successful stenting of the mid left anterior descending artery using 3.25 x 18 mm Xience SYDNEE with an excellent angiographic results 5. Adjunctive use of intravascular imaging 6. Ultrasound guided access of the right radial INDICATION: 57-year-old gentleman with CAD and prior stenting of the RCA and known disease involving the LCx and LAD continues to have chest discomfort with exertion and shortness of breath with exertion concerning for anginal COMPLICATION: None APPROACH: Right radial artery LEVEL OF SEDATION: Moderate with the sedation time off right 55 minutes PROCEDURE DESCRIPTION: After obtaining an informed consent the patient was brought to the cardiac cath lab radiology technician. The right radial artery was cannulated using micropuncture technique under ultrasound guidance, the micropuncture wire passed easily then I placed a 6- Welsh sheath at the right radial artery. I gave the patient after that 2 mg of verapamil intra-arterial and 5000 use of heparin intravenous. Additional heparin was given throughout the procedure with continuous ACT monitoring. Selective right and left coronary angiogram performed using JR4 for the right coronary artery and CLS 3 for the left coronary system. After that left heart catheterization was performed using the JR4 catheter which causes aortic valve then I did pulled back across the valve. The procedure was completed was no complication. After that I did intervene on the left circumflex coronary artery. SELECTIVE CORONARY ANGIOGRAM: The right coronary artery: Large caliber vessel and a dominant vessel. The RCA appears to have mild disease only. The stent in the RCA appeared to be patent. Left main: Has mild disease only. Bifurcates into an LCx and LAD The left circumflex: Large caliber vessel nondominant vessel. The LCx is as into an OM1 which is a medium to large caliber vessel with severe disease in the proximal portion The left anterior descending artery: Large caliber vessel. The proximal LAD appeared to be angiographically normal and gives rise into the first diagonal which seems to be normal. The mid LAD has a tubular lesion appeared to be in the range of 70-80%. The LAD in the midportion gives rise into the second diagonal which appeared to be angiographically normal. The LAD distally appears to have mild disease only HEMODYNAMICS: LVEDP was about 10-12 mmHg was no significant gradient across aortic valve PCI OF THE LCx and LAD: Anticoagulation was initiated using heparin with continuous ACT monitoring. After that I did engage the left main using CLS 3 guiding catheter. I did wire the left circumflex using a long whisper wire and the LAD using short whisper wire. Predilatation of the circumflex lesion was performed using initially 2 mm balloon and then 2.25 mm balloon. After that I deployed 2.25 x 15 mm stent where the stent was positioned under fluoroscopy guidance and deployed under its nominal pressure. Subsequently the following angiogram showed good angiographic results and the procedure was completed was no complication on the left circumflex. Regarding the LAD lesion I did perform intravascular ultrasound which showed moderate calcifications with a diameter of the LAD around 3.5 mm. I decided to deploy a 3.25 x 18 mm stent. The stent was positioned under fluoroscopy guidance and deployed under its nominal pressure. Postdilatation was performed using 3.5 mm balloon. Final angiogram showed excellent angiographic results and the procedure was completed was no complication CONCLUSION: Patent stent in the proximal left anterior descending artery Severe disease involving OM1. I did perform successful stenting of OM1 Severe disease involving the mid LAD. I did perform successful stenting of the mid LAD POSTPROCEDURE MANAGEMENT: 1. Dual antiplatelet therapy using aspirin and Effient for 12 month 2. Aggressive cholesterol control 3. Follow-up with the patient
[2023-01-04] MEDS ORDERED: SODIUM CHLORIDE 0.9% 1,000 ML in EMPTY BAG 1 BAG IV SCH (11:00)
[2023-01-04] MEDS: ASCORBIC ACID 500 MG TAB PO SCH (20:36)
[2023-01-05 02:47] VITALS: TEMP 98.2
[2023-01-05 06:48] LABS: African American GFR (CKD) >90 (>60 ml/min/1.73 sqM); Non-African American GFR(CKD) >90 (>60 ml/min/1.73 sqM)
[2023-01-05 07:35] VITALS: BP 131/74; PULSE 60; RESP 18
[2023-01-05] MEDS: ASCORBIC ACID 500 MG TAB PO SCH (08:32)
--- NOTE | 2023-01-05 08:45 | P.DS ---
Providers Attending physician: Ney Bernal Consults: 01/04/23 10:48 Consult Physician Routine Consulting Provider: [facility] Consult Reason/Comments: Post Interventional patient Do you want consulting provider notified?: Already Contacted Primary care physician: Alexander Lopez [place] [facility] Course: The patient is a 57-year-old gentleman well underwent yesterday a heart catheterization and stenting of the LCx and LAD He was seen and evaluated this morning. He is asymptomatic and hemodynamically stable. The patient is going to be discharged home on dual antiplatelet therapy and I'll follow-up with the patient next week in the office The right radial site is soft and nontender with a good pulse Plan - Discharge Summary Discharge Rx Participant: No New Discharge Prescriptions: Continue Omeprazole 20 mg PO DAILY PRN PRN Reason: Heartburn Evolocumab [Repatha Syringe] 140 mg SQ Q14D Cinnamon Bark [Cinnamon] 500 mg PO QAM L.acidoph,Paracasei, B.lactis [Probiotic] 1 cap PO QAM Furosemide [Lasix] 20 mg PO QAM Losartan [Cozaar] 25 mg PO QAM guaiFENesin [Mucinex] 600 mg PO BID PRN PRN Reason: Congestion Fish Oil/Dha/Epa [Fish Oil 1,200 mg Fish Oil] 1 cap PO QAM Ascorbic Acid [Vitamin C] 1,000 mg PO BID tadalafiL [Cialis] 5 mg PO QAM Vit D3(Unk) 1 tab PO QAM Aspirin 325 mg PO QAM Prasugrel [Effient] 10 mg PO QAM Discharge Medication List Evolocumab [Repatha Syringe] 140 mg SQ Q14D 11/17/16 [History] Omeprazole 20 mg PO DAILY PRN 11/17/16 [History] Ascorbic Acid [Vitamin C] 1,000 mg PO BID 06/29/21 [History] Cinnamon Bark [Cinnamon] 500 mg PO QAM 06/29/21 [History] Fish Oil/Dha/Epa [Fish Oil 1,200 mg Fish Oil] 1 cap PO QAM 06/29/21 [History] L.acidoph,Paracasei, B.lactis [Probiotic] 1 cap PO QAM 06/29/21 [History] guaiFENesin [Mucinex] 600 mg PO BID PRN 06/29/21 [History] tadalafiL [Cialis] 5 mg PO QAM 06/29/21 [History] Vit D3(Unk) 1 tab PO QAM 12/02/22 [History] Aspirin 325 mg PO QAM 12/30/22 [History] Furosemide [Lasix] 20 mg PO QAM 12/30/22 [History] Losartan [Cozaar] 25 mg PO QAM 12/30/22 [History] Prasugrel [Effient] 10 mg PO QAM 12/30/22 [History] Follow up Appointment(s)/Referral(s): Ney Bernal MD [STAFF PHYSICIAN] - 1 Week (APPOINTMENT MADE ON December @ 4:00PM ) Patient Instructions/Handouts: Moderate Sedation (DC), After Radial Heart Catheterization (GEN) Activity/Diet/Wound Care/Special Instructions: *NO LIFTING, PUSHING, OR PULLING ANYTHING OVER 5 POUNDS FOR 5 DAYS *NO DRIVING FOR 3 DAYS *YOU CAN REMOVE YOUR DRESSING AND SHOWER TOMORROW BUT DO NOT SUBMERSE YOUR PUNCTURE SITE IN WATER FOR A FEW DAYS TO PREVENT INFECTION - SO NO TUB BATHS, PO OLS, HOT TUBS, DISHES...ETC *ANY SIGNS OF BLEEDING (HARDNESS, SWELLING, OR EXCESSIVE BRUISING) HOLD DIRECT PRESSURE ON YOUR PUNCTURE SITE AND COME TO THE NEAREST EMERGENCY ROOM TO GET YOUR PUNCTURE SITE LOOKED AT - DO NOT DRIVE YOURSELF! EITHER CALL EMS OR HAVE SOMEONE DRIVE YOU!
[2023-01-05] MEDS ORDERED: TADALAFIL 5 MG PO SCH (09:00)
[2023-01-05] MEDS ORDERED: LACTOBACILLUS ACIDOPHILUS/PECT 1 EACH CAPSULE PO SCH (09:00)
[2023-01-05] MEDS ORDERED: NON FORMULARY DRUG (Cinnamon Bark [Cinnamon] 500 MG Capsule) PO SCH (09:00)
[2023-01-05] MEDS ORDERED: NON FORMULARY DRUG (Fish Oil/Dha/Epa [Fish Oil 1,200 Mg Fish Oil] 1 EACH Capsule) PO SCH (09:00)
[2023-01-05] MEDS ORDERED: PRASUGREL 10 MG TAB PO SCH (09:00)
[2023-01-05] MEDS ORDERED: CHOLECALCIFEROL 25 MCG (1000 IU) TABLET PO SCH (09:00)
[2023-01-05] MEDS ORDERED: FUROSEMIDE 20 MG TAB PO SCH (09:00)
[2023-01-05] MEDS ORDERED: LOSARTAN 25 MG TAB PO SCH (09:00)
[2023-01-05] MEDS ORDERED: ASPIRIN 325 MG TAB PO SCH (09:00)
[2023-01-17] MEDS ORDERED: EVOLOCUMAB 140 MG/ML SQ SCH (09:00)
== END 2023-01-05 10:14 | disposition home or self-care (01) ==
LOC: CATHCVL 06:54 → 6NMEDSUR 10:43 → CATHCVL 01-05 10:14
PROVIDERS: ATTEND Internal Medicine Interventional Cardiology
DX: I25.10 Atherosclerotic heart disease of native coronary artery without angina pectoris (principal); Z95.5 Presence of coronary angioplasty implant and graft; I10 Essential (primary) hypertension; E78.5 Hyperlipidemia, unspecified; Z79.82 Long term (current) use of aspirin; Z85.46 Personal history of malignant neoplasm of prostate; Z79.899 Other long term (current) drug therapy
CPT/HCPCS: 94760; 92978; 93458; 80048; 82565; 85025; 99152; 99153 ×3; C9600; C1769 ×3; C1887; C1894; C1725 ×4; C1753; C1874 ×2; J2250; J2001; J1644; Q9967

== ENCOUNTER 2023-11-23 08:50 | Day surgery (SDC) | payer OTHER ==
[2023-11-23] MEDS ORDERED: LIDOCAINE 1% (10MG/ML) FOR IV START INTRADERMA PRN (09:07)
[2023-11-23 09:16] VITALS: TEMP 97.7
[2023-11-23] MEDS: IV FLUID CONTINUATION 1,000 ML IV ONE (09:19)
[2023-11-23] MEDS: LACTATED RINGERS 1,000 ML IV SCH (09:19)
[2023-11-23 09:26] LABS: Glucose,Whole Blood 138 mg/dL (70-110)
[2023-11-23] MEDS ORDERED: PROPOFOL 10 MG/ML 20 ML VIAL IV ONE (10:09)
--- NOTE | 2023-11-23 10:21 | P.PCN ---
Date of Procedure: 11/23/23 Procedure(s) Performed: BRIEF HISTORY: Patient is a 58-year-old pleasant white male scheduled for an elective colonoscopy as a part of screening for colon cancer. PROCEDURE PERFORMED: Colonoscopy. PREOPERATIVE DIAGNOSIS: Screening for colon cancer. IV sedation per Anesthesia. PROCEDURE: After informed consent was obtained, the patient, was brought into the endoscopy unit. IV sedation was administered by Anesthesia under continuous monitoring. Digital rectal examination was normal. Initially the Olympus CF-160 flexible video colonoscope was then inserted in the rectum, gradually advanced into the cecum without any difficulty. Careful examination was performed as the scope was gradually being withdrawn. Ileocecal valve and the appendiceal orifice were visualized and appeared normal. Prep was excellent. Mucosa of the cecum, ascending colon, transverse colon, descending colon, sigmoid colon, and rectum appeared normal. Retroflexion was performed in the rectum and no lesions were seen. The patient tolerated the procedure well. IMPRESSION: Normal-appearing colon from rectum to cecum with no evidence of colorectal neoplasia.. RECOMMENDATIONS: Findings of this examination were discussed with the patient as well as his family. He was advised to have repeat screening colonoscopy in 1 0 years.
[2023-11-23 10:52] VITALS: BP 130/77; PULSE 68; RESP 18
== END 2023-11-23 10:56 | disposition home or self-care (01) ==
LOC: ORWHC2ENDO 08:50
PROVIDERS: ATTEND Internal Medicine Gastroenterology
DX: Z12.11 Encounter for screening for malignant neoplasm of colon (principal); I25.10 Atherosclerotic heart disease of native coronary artery without angina pectoris; I10 Essential (primary) hypertension; E78.5 Hyperlipidemia, unspecified; E11.9 Type 2 diabetes mellitus without complications; M19.90 Unspecified osteoarthritis, unspecified site; K21.9 Gastro-esophageal reflux disease without esophagitis; F17.200 Nicotine dependence, unspecified, uncomplicated; Z79.82 Long term (current) use of aspirin; Z79.899 Other long term (current) drug therapy
CPT/HCPCS: 45378; J2704

== ENCOUNTER → 2024-02-07 | Outpatient (CLI) | payer OTHER ==
--- NOTE | 2024-02-29 11:13 | MR ---
Patient: Jos [place] J Ordering Physician: Unknown, Unknown ID: [id number] Phone, Pager: Phone : N/A Pager: N/A : [phone] Age/Gender: 59Y, M Primary Location: N/A Procedure: MR lumbar spine w o con Study Date: 02/07/2024 4:17:03 PM EXAMINATION TYPE: MR lumbar spine wo con DATE OF EXAM: 02/07/2024 10:03 PM CLINICAL INDICATION: Low back pain, tingling in left foot. COMPARISON: 11/02/2016 TECHNIQUE: Multi planar, multi sequence imaging was performed utilizing: T1-weighted, T2-weighted, a nd turbo inversion recovery imaging of the lumbar spine. IV Contrast: cc . 10 cc Gadavist FINDINGS: Alignment: The lumbar vertebral bodies have preserved heights and alignment. Cord: The conus medullaris and the distal spinal cord appear unremarkable with regards to their signa l intensity and morphology. No abnormal postcontrast enhancement visualized. Bones/Discs: Wedge compression deformity of the L1 vertebral body anteriorly with greater than 50% he ight loss anteriorly. No retropulsion. Degeneration changes throughout the spine with osteophyte form ation and facet joint arthropathy. Multilevel disc desiccation is present. Reactive adjoining endplat e edema at L4-L5, L1 and L2. No abnormal postcontrast enhancement visualized. T12-L1: No evidence of significant spinal canal stenosis or neural foraminal stenosis. L1-L2: No evidence of significant spinal canal stenosis or neural foraminal stenosis. L2-L3: Disc bulge and facet joint arthropathy result in mild spinal canal and moderate bilateral neur al foraminal stenosis. L3-L4: Disc bulge and facet joint arthropathy result in mild spinal canal and moderate bilateral neur al foraminal stenosis. L4-L5: Disc bulge and facet joint arthropathy result in mild spinal canal and severe bilateral neural foraminal stenosis, right greater than left. L5-S1: The disc has a rounded posterior morphology without significant spinal canal stenosis. Facet j oint arthropathy with mild bilateral neural foraminal stenosis. No significant spinal canal or neural foraminal stenosis in the remainder of the visualized levels. Other findings: None. IMPRESSION: 1. No definitive evidence of disc herniation or significant spinal canal stenosis. 2. Moderate disc degeneration with associated osteoarthritic changes. 3. L4-L5 severe bilateral neural foraminal stenosis right greater than left. 4. Wedge compression deformity of L1 vertebral body anteriorly with greater than 50% height loss.
== END | disposition home or self-care (01) ==
LOC: RADMRIMAIN 19:15
PROVIDERS: ATTEND Physical Medicine & Rehabilitation
DX: S32.010S Wedge compression fracture of first lumbar vertebra, sequela (principal); M43.17 Spondylolisthesis, lumbosacral region; M51.17 Intervertebral disc disorders with radiculopathy, lumbosacral region; M48.062 Spinal stenosis, lumbar region with neurogenic claudication; M99.73 Connective tissue and disc stenosis of intervertebral foramina of lumbar region; M47.27 Other spondylosis with radiculopathy, lumbosacral region
CPT/HCPCS: 72158; A9585